=== PATIENT | female | born 1995 | race American Indian/Alaskan Native ===

== ENCOUNTER 2021-12-01 19:27 | Emergency (ER) | payer SELFPAY ==
[2021-12-01 20:32] VITALS: BP 122/86
--- NOTE | 2021-12-01 20:56 | XRay Report ---
XR shoulder 2+V RT INDICATION / CLINICAL INFORMATION: injury to right shoulder. COMPARISON: None available. FINDINGS: No acute fracture. Normal alignment. Joint spaces are preserved. No destructive osseous lesion or s uspicious periosteal reaction. Impression: 1.No acute fracture. Signer Name: Jorge Huddleston MD Signed: 12/01/2021 8:51 PM Workstation Name: [id number]
== END 2021-12-02 01:30 | disposition left against medical advice (07) ==
LOC: ED 19:27
DX: M79.601 Pain in right arm (principal); Z53.21 Procedure and treatment not carried out due to patient leaving prior to being seen by health care provider